=== PATIENT | female | born 1945 | race Caucasian/White ===

== ENCOUNTER 2019-11-04 16:21 | Emergency (ER) | payer MEDICARE, SELFPAY ==
--- NOTE | ~2019-11-04 | XR_ITS ---
EXAMINATION: XR chest 2V DATE: 11/04/2019 18:22 INDICATION: Shortness of breath, cough, wheezing TECHNIQUE: PA and lateral views of the chest are obtained. COMPARISON: 10/03/2019 FINDINGS: The lungs are free of acute opacities. There is mild chronic atelectasis of the lower lobes . There is no pleural effusion or pneumothorax. The cardiomediastinal silhouette is normal. There are bridging osteophytes at multiple levels in the spine, consistent with diffuse idiopathic skeletal hy perostosis (DISH). IMPRESSION: 1. No acute cardiopulmonary abnormality. Reviewed, dictated and finalized at location A. ATOR OPERATOR
[2019-11-04 16:23] VITALS: BP 180/70; PULSE 98; RESP 20; TEMP 36.2; O2SAT 93
--- NOTE | 2019-11-04 16:37 | ED.URI ---
HPI - URI/Sore Throat General Chief Complaint: Upper Respiratory Infection <Latrell Wilder MD - Last Filed: 11/05/19 06:29> Stated Complaint: Possible pneumonia <Latrell Wilder MD - Last Filed: 11/05/19 06:29> Time Seen by Provider: 11/04/19 16:29 <Latrell Wilder MD - Last Filed: 11/05/19 06:29> History of Present Illness HPI Narrative: Pt is a 74 y/o female presenting to the ED c/o cough. Pt reports she started feeling bad with a cough about 2 days ago. Pt states she was discharged from this hospital recently with a Diagnosis of PNA and was sent to [facility] for rehabilitation with steroids and Abx. Pt states she was discharged from [facility] on 10/25 and had finished her prescriptions of steroids and Abx by that time. Pt states she was seen by her PCP, Dr. James, earlier today about her cough in which she states he suspected was her COPD. Pt notes she also saw her Machine Tailer, Dr. Nicolas, today who instructed the pt to present to the ED. Pt states she has 2 inhalers at home. Pt also reports LUE pain and JENKINS, but denies fever or chills. Pt notes she has a Hx of CHF in which she is currently taking a Diuretic for, A Fib, Fibromyalgia, Rheumatoid Arthritis, and states she was working out frequently at [facility]. <Latrell Wilder MD - Last Filed: 11/05/19 06:29> Pertinent past history: pneumonia, COPD and other (CHF) <Latrell Wilder MD - Last Filed: 11/05/19 06:29> Onset (ago): day(s) (2) <Latrell Wilder MD - Last Filed: 11/05/19 06:29> Associated symptoms: headache and other (LUE pain) <Latrell Wilder MD - Last Filed: 11/05/19 06:29> Related Data Home Medications: Home Medications Medication Instructions Recorded Confirmed amiodarone 200 mg tablet 100 mg PO DAILY 08/29/19 10/03/19 apixaban 5 mg tablet 5 mg PO BID 08/29/19 10/03/19 carbamazepine 200 mg tablet 200 mg PO Q12H 08/29/19 10/03/19 diphenhydramine 25 1 tablet PO HS 08/29/19 10/03/19 mg-acetaminophen 500 mg tablet fluticasone 250 mcg-salmeterol 50 1 inhalation INHALATION BID 08/29/19 10/03/19 mcg/dose blistr powdr for inhalation fluticasone propionate 50 1 spray NASAL DAILY 08/29/19 10/03/19 mcg/actuation nasal spray,suspension furosemide 80 mg tablet 80 mg PO QAM 08/29/19 10/03/19 guaifenesin 600 mg tablet, 600 mg PO BID 08/29/19 10/03/19 extended release 12 hr hydrocodone 7.5 mg-acetaminophen 1 tablet PO BID 08/29/19 10/03/19 300 mg tablet magnesium oxide 400 mg PO BID 08/29/19 10/03/19 spironolactone 25 mg tablet 50 mg PO DAILY 08/29/19 10/03/19 trazodone 50 mg tablet 50 mg PO HS 08/29/19 10/03/19 tiotropium bromide 1.25 2 puff INHALATION DAILY 09/23/19 10/03/19 mcg/actuation mist for inhalation cyclobenzaprine 10 mg PO .QHS 10/03/19 10/03/19 diltiazem HCl 240 mg PO DAILY 10/03/19 10/03/19 cholecalciferol (vitamin D3) 25 2,000 unit PO DAILY cap 11/04/19 mcg (1,000 unit) capsule fluticasone 100 mcg-salmeterol 50 1 puff INHALATION Q12H 11/04/19 mcg/dose blistr powdr for inhalation <Latrell Wilder MD - Last Filed: 11/05/19 06:29> Allergies/Adverse Reactions: Allergies Allergy/AdvReac Type Severity Reaction Status Date / Time No Known Allergies Allergy Verified 11/04/19 16:40 <Latrell Wilder MD - Last Filed: 11/05/19 06:29> Review of Systems Review of Systems: All systems reviewed & are unremarkable except as noted in HPI and below <Latrell Wilder MD - Last Filed: 11/05/19 06:29> Constitutional: Constitutional: Denies chills and Denies fever(s) <Latrell Wilder MD - Last Filed: 11/05/19 06:29> Respiratory: Respiratory: Reports cough <Latrell Wilder MD - Last Filed: 11/05/19 06:29> Musculoskeletal: Musculoskeletal: Reports other (LUE pain) <Latrell Wilder MD - Last Filed: 11/05/19 06:29> Neurologic: Reports headache(s) <Latrell Wilder MD - Last Filed: 11/05/19 06:29> [facility]
--- NOTE | 2019-11-04 16:45 | ECG_ITS ---
Measurements Intervals [place] Rate: 98 P: 88 TN: 180 QRS: 15 QRSD: 84 T: 39 QT: 324 QTc: 414 Interpretive Statements SINUS RHYTHM NORMAL ECG Electronically Signed On 11-05-2019 8:19:15 TOOLMAKER HELPER by Ran Correa D.O.
[2019-11-04 16:46] VITALS: PULSE 98; RESP 20; O2SAT 96
[2019-11-04] MEDS: IPRATROPIUM BR 0.02% INH SOLN 0.5 MG/2.5 ML VIAL 1 MG INHALATION (17:14)
[2019-11-04] MEDS: ALBUTEROL SULFATE NEB 2.5 MG/0.5 ML INH 10 MG INHALATION (17:14)
[2019-11-04] MEDS: methylPREDNISolone SOD SUCC 125 MG VIAL IV PUSH (17:26)
[2019-11-04 17:33] LABS: Basophils Percent Auto 0.4 % (0.2-1.2); Eosinophils Absolute Auto 0.2 K/mm3 (0-0.3); Eosinophils Percent Auto 2.7 % (0-4.4); Hematocrit 40.2 % (37.0-47.0); Hemoglobin 12.8 g/dL (12.0-15.0); Immature Granulocyte Absolute 0.12 K/mm3 (0.00-0.031); Immature Granulocyte Percent A 1.4 % (0-0.5); Lymphocytes Absolute Auto 0.97 K/mm3 (0.9-3.2); Lymphocytes Percent Auto 11.4 % (18.3-44.2); Mean Corpuscular HGB Conc 31.8 g/dl (32-36); Mean Corpuscular Hemoglobin 30.2 pg (26-34); Mean Corpuscular Volume 94.8 fl (80-100); Mean Platelet Volume 10.7 fl (7.4-10.4); Monocytes Absolute Auto 0.8 K/mm3 (0.1-0.6); Monocytes Percent Auto 9.7 % (2.6-8.5); Neutrophils Absolute Auto 6.3 K/mm3 (1.3-6.7); Neutrophils Percent Auto 74.4 % (45.5-73.1); Platelet Count Result 330 k/mm3 (150-375); Red Blood Count 4.24 M/mm3 (4.2-5.4); Red Cell Distribution Width 13.3 % (11.5-14.5); White Blood Count 8.5 K/mm3 (4.5-10.0)
[2019-11-04 17:37] LABS: Blood Urea Nitrogen 28 mg/dL (7-17); Calcium 9.5 mg/dL (8.4-10.2); Carbon Dioxide 28 mmol/L (22-30); Chloride 97 mmol/L (98-107); Estimated CRCL calculation 42 ml/min; Estimated Glomerular Filt Rate 32; Glucose 115 mg/dL (65-105); Potassium 4.4 mmol/L (3.4-5.0); Sodium 140 mmol/L (137-145)
[2019-11-04 17:50] VITALS: BP 160/66; PULSE 100; RESP 15; O2SAT 100
[2019-11-04 18:11] VITALS: O2SAT 100
[2019-11-04 19:04] VITALS: BP 144/84; PULSE 98; RESP 18; O2SAT 94
[2019-11-04] MEDS: ACETAMINOPHEN 325 MG TABLET 650 MG PO (19:31)
[2019-11-04 20:19] VITALS: BP 165/67; PULSE 100; RESP 20; O2SAT 96
== END 2019-11-04 20:22 | disposition home or self-care (01) ==
PROVIDERS: Emergency Provider Emergency Medicine; PCP Internal Medicine
DX: J44.1 Chronic obstructive pulmonary disease with (acute) exacerbation (principal); I13.0 Hypertensive heart and chronic kidney disease with heart failure and stage 1 through stage 4 chronic kidney disease, or unspecified chronic kidney disease; N18.9 Chronic kidney disease, unspecified; I50.9 Heart failure, unspecified; I48.91 Unspecified atrial fibrillation; Z79.01 Long term (current) use of anticoagulants; M79.7 Fibromyalgia; M06.9 Rheumatoid arthritis, unspecified; F41.9 Anxiety disorder, unspecified; M19.90 Unspecified osteoarthritis, unspecified site; Z85.42 Personal history of malignant neoplasm of other parts of uterus; G47.33 Obstructive sleep apnea (adult) (pediatric); Z87.440 Personal history of urinary (tract) infections; E55.9 Vitamin D deficiency, unspecified; Z96.651 Presence of right artificial knee joint; Z87.891 Personal history of nicotine dependence
CPT/HCPCS: 36415; 71046; 80048; 85025; 93005; 96374; 99284; A9270; J2930

== ENCOUNTER 2020-02-23 11:11 | Outpatient (CLI) | payer MEDICARE, SELFPAY ==
--- NOTE | ~2020-02-23 | XR_ITS ---
EXAMINATION: XR chest 2V DATE: 02/23/2020 12:30 INDICATION: Amiodarone therapy. TECHNIQUE: Frontal and lateral views of the chest were obtained. COMPARISON: Chest 2 views 11/04/2019, chest CT 10/03/2019 FINDINGS: There is mild atelectasis in left lower lung zone. No pleural effusion or pneumothorax. The heart size is normal. IMPRESSION: 1. Mild atelectasis in left lower lung zone. Reviewed, dictated and finalized at location A.
[2020-02-23 13:27] LABS: Alanine Aminotransferase 45 U/L (4-35); Albumin Level 4.5 g/dL (3.5-5.1); Alkaline Phosphatase 208 U/L (38-126); Aspartate Amino Transferase 43 U/L (14-36); Bilirubin,Total 0.5 mg/dL (0.2-1.3); Blood Urea Nitrogen 38 mg/dL (7-17); Calcium 9.2 mg/dL (8.4-10.2); Carbon Dioxide 27 mmol/L (22-30); Chloride 100 mmol/L (98-107); Cholesterol 240 mg/dL (0-200); Estimated Glomerular Filt Rate 37; Glucose 105 mg/dL (65-105); HDL Direct 57 mg/dL; Magnesium 2.5 mg/dL (1.6-2.3); Potassium 4.7 mmol/L (3.4-5.0); Sodium 133 mmol/L (137-145); Triglycerides 179 mg/dL (<150)
[2020-02-23 13:32] LABS: Vitamin D 25 Hydroxy 36.3 ng/mL
[2020-02-23 13:35] LABS: LDL Cholesterol Direct 124 mg/dL; Rheumatoid Factor < 8.6 IU/ML (<12)
[2020-02-23 13:35] LABS: Free T4 Free Thyroxine 1.07 ng/mL (0.78-2.19)
[2020-02-23 14:41] LABS: Erythrocyte Sedimentation Rate 116 mm/hr (0-20)
[2020-02-23 14:43] LABS: Mean Corpuscular HGB Conc 31.6 g/dl (32-36); Mean Corpuscular Hemoglobin 30.5 pg (26-34); Mean Corpuscular Volume 96.4 fl (80-100); Mean Platelet Volume 11.1 fl (7.4-10.4); Platelet Count Result 323 k/mm3 (150-375); Red Blood Count 3.94 M/mm3 (4.2-5.4); Red Cell Distribution Width 12.2 % (11.5-14.5); White Blood Count 8.8 K/mm3 (4.5-10.0)
[2020-02-23 14:54] LABS: Folic Acid 14.1 ng/mL (2.76->20)
[2020-02-25 12:06] LABS: Mitochondrial (M2) Ab (IgG) <=20.0 U (<=20.0)
[2020-02-26 22:57] LABS: Albumin 3.8 g/dL (3.8-4.8); Alpha 1 Globulin 0.4 g/dL (0.2-0.3); Beta 1 Globulin 0.5 g/dL (0.4-0.6); Gamma Globulin 0.5 g/dL (0.8-1.7); Protein, Total 6.3 g/dL (6.1-8.1)
== END 2020-02-23 11:12 | disposition home or self-care (01) ==
PROVIDERS: PCP Internal Medicine; Referring Provider Nurse Practitioner Adult Health; Visit Provider Internal Medicine
DX: E55.9 Vitamin D deficiency, unspecified (principal); R53.83 Other fatigue; R79.89 Other specified abnormal findings of blood chemistry; R70.0 Elevated erythrocyte sedimentation rate; R77.8 Other specified abnormalities of plasma proteins; R74.8 Abnormal levels of other serum enzymes; Z79.899 Other long term (current) drug therapy; J98.11 Atelectasis
CPT/HCPCS: 36415; 71046; 80053; 80061; 82306; 82607; 82746; 83520; 83735; 84155; 84165; 84439; 84443; 85027; 85652; 86038; 86430

== ENCOUNTER 2020-03-26 08:14 | Outpatient (CLI) | payer MEDICARE, SELFPAY ==
[2020-03-19 09:13] VITALS: BMI 53.2
[2020-03-26] VITALS (12 sets, daily range): BP systolic 133–158; BP diastolic 53–66; PULSE 59–77; RESP 16–20; O2SAT 92–96
--- NOTE | ~2020-03-26 | US_ITS ---
EXAMINATION: US biopsy liver DATE: 03/26/2020 11:34 INDICATION: Elevated alkaline phosphatase levels TECHNIQUE: The procedure including the risks and benefits was discussed with the patient. Risks discu ssed included bleeding and infection. The patient understood the risks and agreed to proceed. The sk in overlying the anterior left hepatic lobe was prepped and draped in usual sterile fashion. Anesthe tic was administered with 1% lidocaine subcutaneously. An 18 gauge core biopsy needle was advanced u nder continuous ultrasound observation to the lesion of interest. 3 core biopsy specimens were obtai maynor. The needle was removed and the entry site was cleaned and dressed. Post procedure ultrasound d emonstrated no hemorrhage. FINDINGS: Ultrasound images demonstrate biopsy needle advanced into the left hepatic lobe for random liver biopsy. There is diffuse increased hepatic echogenicity with coarsened echotexture and decrease d acoustic transmission consistent with diffuse hepatic steatosis.. IMPRESSION: 1. Successful Ultrasound-guided random liver biopsy at the left hepatic lobe. 2. Diffuse hepatic steatosis. Reviewed, dictated and finalized at location A.
[2020-03-26 08:34] LABS: Mean Platelet Volume 9.8 fl (7.4-10.4); Platelet Count Result 301 k/mm3 (150-375)
--- NOTE | 2020-03-26 14:15 | SUR.PHASEII ---
1413 DR ART SPEAKING WITH PT.
== END 2020-03-26 08:15 | disposition home or self-care (01) ==
LOC: ANHIMG 08:20
PROVIDERS: Radiology Diagnostic Radiology; PCP Internal Medicine; Visit Provider Internal Medicine Gastroenterology
DX: R74.8 Abnormal levels of other serum enzymes (principal)
CPT/HCPCS: 36415; 47000; 76942; 85049; 85610; 88307; 88312; 88313

== ENCOUNTER 2020-07-12 10:05 | Outpatient (CLI) | payer MEDICARE, SELFPAY ==
[2020-07-12 10:37] LABS: Basophils Percent Auto 0.4 % (0.2-1.2); Eosinophils Absolute Auto 0.2 K/mm3 (0-0.3); Eosinophils Percent Auto 1.9 % (0-4.4); Hematocrit 38.8 % (37.0-47.0); Hemoglobin 12.3 g/dL (12.0-15.0); Immature Granulocyte Absolute 0.09 K/mm3 (0.00-0.031); Immature Granulocyte Percent A 1.1 % (0-0.5); Lymphocytes Absolute Auto 1.02 K/mm3 (0.9-3.2); Lymphocytes Percent Auto 11.9 % (18.3-44.2); Mean Corpuscular HGB Conc 31.7 g/dl (32-36); Mean Corpuscular Hemoglobin 30.1 pg (26-34); Mean Corpuscular Volume 94.9 fl (80-100); Mean Platelet Volume 9.7 fl (7.4-10.4); Monocytes Absolute Auto 0.5 K/mm3 (0.1-0.6); Monocytes Percent Auto 6.3 % (2.6-8.5); Neutrophils Absolute Auto 6.7 K/mm3 (1.3-6.7); Neutrophils Percent Auto 78.4 % (45.5-73.1); Platelet Count Result 299 k/mm3 (150-375); Red Blood Count 4.09 M/mm3 (4.2-5.4); Red Cell Distribution Width 12.9 % (11.5-14.5); White Blood Count 8.6 K/mm3 (4.5-10.0)
[2020-07-12 10:49] LABS: Alanine Aminotransferase 21 U/L (4-35); Albumin Level 4.1 g/dL (3.5-5.1); Alkaline Phosphatase 201 U/L (38-126); Anion Gap 8 mmol/L (8-16); Aspartate Amino Transferase 22 U/L (14-36); Bilirubin,Total 0.5 mg/dL (0.2-1.3); Blood Urea Nitrogen 23 mg/dL (7-17); Calcium 9.6 mg/dL (8.4-10.2); Carbon Dioxide 31 mmol/L (22-30); Chloride 101 mmol/L (98-107); Cholesterol 234 mg/dL (0-200); Estimated Glomerular Filt Rate 44; Glucose 112 mg/dL (65-105); HDL Direct 59 mg/dL; Potassium 4.7 mmol/L (3.4-5.0); Sodium 140 mmol/L (137-145); Triglycerides 190 mg/dL (<150)
[2020-07-12 11:00] LABS: LDL Cholesterol Direct 124 mg/dL
[2020-07-12 11:13] LABS: Erythrocyte Sedimentation Rate 95 mm/hr (0-20)
[2020-07-12 11:32] LABS: Free T4 Free Thyroxine 1.12 ng/mL (0.78-2.19)
[2020-07-12 11:55] LABS: Folic Acid 8.4 ng/mL (2.76->20)
== END 2020-07-12 10:06 | disposition home or self-care (01) ==
PROVIDERS: PCP Internal Medicine; Visit Provider Internal Medicine
DX: E78.5 Hyperlipidemia, unspecified (principal); R53.83 Other fatigue; E03.9 Hypothyroidism, unspecified; M79.10 Myalgia, unspecified site
CPT/HCPCS: 36415; 80053; 80061; 82607; 82746; 84439; 84443; 85025; 85652

== ENCOUNTER 2020-07-25 13:23 | Outpatient (CLI) | payer MEDICARE, SELFPAY ==
--- NOTE | ~2020-07-25 | CT_ITS ---
EXAMINATION:CT chest wo con DATE: 07/25/2020 13:49 INDICATION: Lung nodule. TECHNIQUE: Computed tomography (CT) of the chest was performed without intravenous contrast. Automate d exposure control and iterative reconstruction technique were employed. The dose-length product (DLP ) was 583.12 mGy-cm. COMPARISON: Chest CT 10/03/2019 FINDINGS: There is mild atelectasis bilaterally. There are subpleural bands in the lower lobes. Calci fied right lung nodules and calcified right hilar and mediastinal lymph nodes are consistent with old granulomatous disease. There is a 12 mm part-solid nodule with 6 mm solid component in right upper l obe. No pleural effusion. The heart size is normal. There are coronary artery calcifications. No eric cardial effusion. The central pulmonary arteries are enlarged, consistent with pulmonary arterial hyp ertension. There is diffuse hepatic steatosis. Calcifications in the spleen are consistent with old g ranulomatous disease. There are nodules in the thyroid measuring up to 14 mm, likely not significant clinically significant. There is severe thoracic spondylosis. IMPRESSION: 1. 12 mm part-solid nodule in right lung upper lobe, stable from 10/03/2019, likely benign. Noncontra st chest CT is recommended in one year. Reviewed, dictated and finalized at location A. LE DATABASE DEVELOPER IMPRESSION: 1. 12 mm part-solid nodule in right lung upper lobe, stable from 10/03/2019, geronimo jorge benign. Noncontrast chest CT is recommended in one year.
== END 2020-07-25 13:24 | disposition home or self-care (01) ==
PROVIDERS: PCP Internal Medicine; Visit Provider Nurse Practitioner Family
DX: R91.1 Solitary pulmonary nodule (principal)
CPT/HCPCS: 71250

== ENCOUNTER 2021-02-11 10:46 | Outpatient (CLI) | payer MEDICARE, SELFPAY ==
[2021-02-11 12:55] LABS: Anion Gap 6 mmol/L (8-16); Blood Urea Nitrogen 36 mg/dL (7-17); Calcium 9.2 mg/dL (8.4-10.2); Carbon Dioxide 34 mmol/L (22-30); Chloride 100 mmol/L (98-107); Estimated Glomerular Filt Rate 32; Glucose 96 mg/dL (65-105); Potassium 4.5 mmol/L (3.4-5.0); Sodium 140 mmol/L (137-145)
== END 2021-02-11 10:47 | disposition home or self-care (01) ==
PROVIDERS: PCP Internal Medicine; Visit Provider Nurse Practitioner Family
DX: I12.9 Hypertensive chronic kidney disease with stage 1 through stage 4 chronic kidney disease, or unspecified chronic kidney disease (principal); N18.9 Chronic kidney disease, unspecified
CPT/HCPCS: 36415; 80048

== ENCOUNTER 2021-02-13 14:45 | Outpatient (CLI) | payer MEDICARE, SELFPAY ==
[2021-02-13 15:42] LABS: Basophils Percent Auto 0.2 % (0.2-1.2); Eosinophils Absolute Auto 0.2 K/mm3 (0-0.3); Eosinophils Percent Auto 2.1 % (0-4.4); Hematocrit 37.9 % (37.0-47.0); Hemoglobin 12.1 g/dL (12.0-15.0); Lymphocytes Absolute Auto 1.01 K/mm3 (0.9-3.2); Lymphocytes Percent Auto 10.1 % (18.3-44.2); Mean Corpuscular HGB Conc 31.9 g/dl (32-36); Mean Corpuscular Hemoglobin 29.9 pg (26-34); Mean Corpuscular Volume 93.6 fl (80-100); Mean Platelet Volume 10.4 fl (7.4-10.4); Monocytes Absolute Auto 0.8 K/mm3 (0.1-0.6); Monocytes Percent Auto 7.9 % (2.6-8.5); Neutrophils Absolute Auto 7.8 K/mm3 (1.3-6.7); Neutrophils Percent Auto 78.7 % (45.5-73.1); Platelet Count Result 295 k/mm3 (150-375); Red Blood Count 4.05 M/mm3 (4.2-5.4); Red Cell Distribution Width 12.5 % (11.5-14.5)
[2021-02-13 15:57] LABS: Cholesterol 275 mg/dL (0-200); HDL Direct 71 mg/dL; Triglycerides 182 mg/dL (<150)
[2021-02-13 16:10] LABS: LDL Cholesterol Direct 124 mg/dL
[2021-02-13 16:30] LABS: Thyroid Stimulating Hormone 0.289 uIU/mL (0.465-4.680)
[2021-02-13 16:33] LABS: Free T4 Free Thyroxine 1.62 ng/mL (0.78-2.19)
[2021-02-13 17:05] LABS: Folic Acid 9.2 ng/mL (2.76->20)
== END 2021-02-13 14:46 | disposition home or self-care (01) ==
PROVIDERS: PCP Internal Medicine; Visit Provider Internal Medicine
DX: R53.83 Other fatigue (principal); E78.00 Pure hypercholesterolemia, unspecified
CPT/HCPCS: 36415; 80061; 82607; 82746; 84439; 84443; 85025; 85610

== ENCOUNTER 2021-03-01 13:20 | Outpatient (RCR) | payer MEDICARE, SELFPAY ==
[2021-02-13 16:04] LABS: INR 2.4; Prothrombin Time 26.9 Seconds (11.1-14.7)
[2021-03-01 13:52] LABS: Alanine Aminotransferase 29 U/L (4-35); Aspartate Amino Transferase 22 U/L (14-36)
[2021-03-01 13:56] LABS: INR 1.7; Prothrombin Time 20.5 Seconds (11.1-14.7)
== END 2021-05-14 23:59 | disposition home or self-care (01) ==
LOC: ANHLAB 13:20
PROVIDERS: PCP Internal Medicine; Visit Provider Internal Medicine Cardiovascular Disease
DX: Z51.81 Encounter for therapeutic drug level monitoring (principal); I48.0 Paroxysmal atrial fibrillation; Z79.01 Long term (current) use of anticoagulants
CPT/HCPCS: 36415; 84450; 84460; 85610